=== PATIENT | female | born 1980 | race Caucasian/White ===

== ENCOUNTER 2019-05-05 06:47 | Inpatient (IN) | payer OTHER ==
[2019-05-05 07:34] VITALS: BMI 43.7
[2019-05-05] MEDS ORDERED: Penicillin G Potassium 5 MILL.UNITS VIAL ONE (07:46)
[2019-05-05] MEDS ORDERED: hydrALAZINE 20 MG/ML VIAL SLOW IVP PRN ×2 (07:50→12:48)
[2019-05-05] MEDS ORDERED: HYDROcodone/Acetaminophen 5/325 mg Tablet PO PRN ×2 (07:50)
[2019-05-05] MEDS ORDERED: Ondansetron PF 4 MG/2 ML Vial IVP PRN ×2 (07:50→15:23)
[2019-05-05] MEDS ORDERED: Ibuprofen 800 MG TAB PO PRN (07:50)
[2019-05-05] MEDS ORDERED: NS / Oxytocin 40 units/1000ml 1,000 ML IV PRN (07:50)
[2019-05-05] MEDS ORDERED: Butorphanol Tartrate 1 MG/ML VIAL SLOW IVP PRN (07:50)
[2019-05-05] MEDS ORDERED: Lidocaine 1% (PF) 30 ML VIAL SC PRN (07:50)
[2019-05-05] MEDS ORDERED: Promethazine HCl 25 MG/ML VIAL IM PRN ×2 (07:50→15:23)
[2019-05-05] MEDS ORDERED: Penicillin G Potassium 5 MILL.UNITS in Sodium Chloride 0.9% 100 ML IVPB SCH (08:00)
[2019-05-05] MEDS ORDERED: NS w/ Oxytocin 10 units 500 ML IV SCH ×2 (08:00)
[2019-05-05] MEDS: Lactated Ringer's 1,000 ML IV SCH ×2 (08:16→23:08)
[2019-05-05 08:36] LABS: Hemoglobin 10.4 g/dL (12.0-16.0); Mean Corpuscular Hemoglobin 28.2 pg (27.0-31.0); Mean Corpuscular Volume 82.9 fL (78.0-98.0); Mean Platelet Volume 7.4 fL (7.4-10.4); Platelet Count 316 thou/uL (130-400); RBC Distribution Width 13.1 % (11.5-14.5); Red Blood Cell (RBC) Count 3.68 mill/uL (4.20-5.40); White Blood Cell (WBC) Count 8.5 thou/uL (4.8-10.8)
[2019-05-05 09:12] LABS: Syphilis Antibody Nonreactive (Nonreactive); Syphilis Antibody Index 0.05 S/CO (<1.00 Non-Reactive)
[2019-05-05 09:13] LABS: HBSAg Index 0.16 S/CO (0-0.99); Hep B Surf Ag Non-Reactive S/CO (NonReactive)
[2019-05-05 09:23] LABS: ALT (SGPT) 9 U/L (8-55); AST (SGOT) 12 U/L (5-34); Albumin 3.2 g/dL (3.5-5.0); Alkaline Phosphatase 145 U/L (40-110); Anion Gap 14 mmol/L (10-20); BUN (Urea Nitrogen) 7 mg/dL (7.0-18.7); Bilirubin, Total 0.2 mg/dL (0.2-1.2); Calc. Creatinine Clearance 197 mL/min (70-130); Calcium 9.1 mg/dL (7.8-10.44); Carbon Dioxide 20 mmol/L (22-29); Chloride 107 mmol/L (98-107); Estimated GFR-MDRD Greater than 90; Glucose 93 mg/dL (70-105); Potassium 3.5 mmol/L (3.5-5.1); Protein, Total 6.2 g/dL (6.0-8.3); Sodium 137 mmol/L (136-145)
[2019-05-05] MEDS ORDERED: PROPOFOL 200 MG/20 ML VIAL ONE (10:08)
[2019-05-05] MEDS ORDERED: Succinylcholine Chloride 20 MG/ML 10 ml SYRINGE FS ONE (10:08)
[2019-05-05] MEDS ORDERED: Penicillin G 2.5 MILL.units 2.5 MILL.UNITS in Premix Bag 1 BAG IVPB SCH (12:00)
[2019-05-05] MEDS ORDERED: Ondansetron PF 4 MG/2 ML Vial ONE (12:24)
[2019-05-05] MEDS ORDERED: Ketorolac Tromethamine 30 MG/ML VIAL ONE (12:24)
[2019-05-05] MEDS ORDERED: Oxytocin 10 UNITS/ML VIAL ONE (12:24)
[2019-05-05] MEDS ORDERED: Fentanyl 100 MCG/2 ML VIAL ONE (12:25)
[2019-05-05 12:47] LABS: Actual Bicarbonate (HCO3v) 22 mEq/L (22-28); Base Excess -5.5 mEq/L (-2.0 to +3.0); pH (Cord, venous) 7.27 (7.32-7.43)
[2019-05-05] MEDS ORDERED: Simethicone Chewable 80 MG TAB PO PRN (12:48)
[2019-05-05] MEDS ORDERED: Methylergonovine 0.2 MG TAB PO PRN (12:48)
[2019-05-05] MEDS ORDERED: Misoprostol 200 MCG TAB PR PRN (12:48)
[2019-05-05] MEDS ORDERED: Adacel (T-DAP) 0.5 ML SYRINGE IM ONE (12:48)
[2019-05-05] MEDS ORDERED: Methylergonovine 0.2 MG/ML VIAL IM PRN (12:48)
[2019-05-05] MEDS ORDERED: Lanolin Ointment 7 GM TUBE TOP PRN (12:48)
[2019-05-05] MEDS ORDERED: Bisacodyl 10 MG SUPP PR PRN (12:48)
[2019-05-05 12:49] LABS: Actual Bicarbonate (HCO3a) 21.1 mEq/L (22-28); Base Excess (BEa) -7.5 mEq/L (-2.0 to +3.0)
[2019-05-05] MEDS ORDERED: CEFAZOLIN 1 GM VIAL ONE (12:49)
[2019-05-05] MEDS ORDERED: HYDROmorphone 2 MG/ML VIAL SLOW IVP PRN (13:14)
[2019-05-05] MEDS ORDERED: Meperidine HCl/PF 25 MG/ML VIAL SLOW IVP PRN (13:14)
[2019-05-05] MEDS ORDERED: L&D-Morphine 4 MG/ML VIAL SLOW IVP PRN (13:14)
[2019-05-05] MEDS ORDERED: Meperidine HCl/PF 25 MG/ML VIAL ONE (13:21)
[2019-05-05] MEDS ORDERED: Magnesium Sulfate 20 gm/500 ml 0 GM/0 ML BAG ONE (13:27)
[2019-05-05] MEDS ORDERED: Morphine 4 MG/ML VIAL ONE (14:22)
[2019-05-05] MEDS ORDERED: Morphine 4 MG/ML VIAL SLOW IVP PRN (14:30)
[2019-05-05] MEDS: CEFAZOLIN 1 GM VIAL SLOW IVP SCH ×2 (14:32→23:48)
[2019-05-05] MEDS ORDERED: diphenhydrAMINE 50 MG/ML VIAL IM PRN (15:23)
[2019-05-05] MEDS ORDERED: Naloxone HCl 0.4 mg/ml Vial IV PRN (15:23)
[2019-05-05] MEDS ORDERED: Zolpidem Tartrate 5 MG TAB PO PRN (15:23)
[2019-05-05] MEDS ORDERED: diphenhydrAMINE 50 MG/ML VIAL IVP PRN (15:23)
[2019-05-05] MEDS ORDERED: diphenhydrAMINE 25 MG CAP PO PRN (15:23)
[2019-05-05] MEDS ORDERED: fentaNYL Citrate/PF 2,000 MCG in Sodium Chloride 0.9% 60 ML IV PRN (15:23)
[2019-05-05] MEDS ORDERED: Communication Order-Pharmacy FS SCH (15:30)
--- NOTE | 2019-05-05 21:40 | OP ---
DATE OF PROCEDURE: 05/05/2019 PREOPERATIVE DIAGNOSES: 1. Induction of labor at 37+ weeks for chronic hypertension, on oral medication. 2. Cord prolapse after artificial rupture of membranes. POSTOPERATIVE DIAGNOSIS: Status post primary low-transverse section. APPLICATION INFRASTRUCTURE ENGINEER: Isaac Larson MD COMPLICATIONS: None. ESTIMATED BLOOD LOSS: Pending at the time of dictation. ANESTHESIA: GETA per Dr. Hammond. FINDINGS: 1. Vigorous female , Apgars and weight pending at the time of dictation, to Nursery. 2. Low-transverse hysterotomy without extension. 3. Normal-appearing placenta and cord. 4. Fundus firm after delivery of the placenta and closure of the hysterotomy. 5. Normal-appearing uterus, tubes, and ovaries bilaterally. INDICATIONS: Ms. Marie Tavera was undergoing an induction of labor for chronic hypertension at 37+ weeks, who presented that morning at approximately 1 cm and at approximately noon, she was noted to be 3 cm and 50% effaced with the head well applied to the cervix, and amniotomy was performed with copious amounts of clear fluid noted. Immediately, the patient soaked approximately 2 towels with amniotic fluid. During that time, the heart tracing was normal and reassuring. Approximately 1 minute after rupture, the patient reported another large gush of fluid and soon thereafter the heart tracing was noted to decrease to the 70s to 90s. A scalp electrode was placed and I examined her cervix with no cord prolapse palpable at that time and return of heart rate tracing baseline to 120 beats per minute. I stayed at the bedside and the heart rate tracing dropped again with the next contraction, and did not return to baseline. At that time, she was examined again with cord palpable on the cervical exam. The head was immediately elevated off the cervix. The patient was counseled on the need for stat section and she was taken back to the OR. DESCRIPTION OF PROCEDURE: The patient was taken back to the OR with IV fluids running. When she was in the OR, elevation of the head off the cervix and cord was maintained by a nurse at the bedside. The heart tones Dopplered in the 120s in the OR. A Ochoa catheter was placed. The abdomen was prepped and draped, and general anesthesia was obtained. Once the patient was asleep, a Pfannenstiel skin incision was made with a scalpel. Skin incision was carried down with a scalpel through the subcutaneous tissue to the fascia. Once the fascia was reached, it was incised in the midline and extended superolaterally using curved Armando scissors. Naseem clamps were placed in the superior border of the fascia, which was sharply and bluntly dissected off the rectus abdominis muscles. This was also done at the inferior edge of the fascia, dissected down toward the pubic symphysis. Rectus muscles and peritoneum were bluntly entered, laterally. An William O retractor was placed into the peritoneal cavity for retraction, visualization, and protection of the wound. A low-transverse hysterotomy was made with a scalpel. The was delivered without difficulty through the hysterotomy. A loose nuchal cord was reduced at the time of delivery. The infant had immediate cry at the bedside. The nose and mouth were suctioned. The cord was doubly clamped and cut, and the infant was handed off to special care nurses in attendance. Cord blood was collected. A cord segment for cord gas was collected. The placenta was delivered. The uterus was exteriorized, massaged to firm and cleared of clot and debris. The hysterotomy was inspected and no extensions were noted. Hysterotomy was closed with Monocryl suture in a running locked fashion. A 2nd imbricating layer using Monocryl suture was placed. After the hysterotomy was completely closed, a small area of bleeding was noted in the left corner. This bleeding was controlled with placement of a [id number]-ah-lkaac plain gut suture. Prior to placing the suture, a request for FloSeal was made. After the suture was placed, the hysterotomy was inspected and hemostasis was noted. No areas of bleeding were noted. FloSeal was placed in the corners of the hysterotomy along the incision line. Pressure was applied for approximately 3 minutes as prescribed. When the clean sponge was removed, hysterotomy was inspected again and there was no evidence of bleeding. The uterine fundus was noted to be firm. The William retractor was removed from the abdominal cavity. The peritoneal edge, rectus muscle, and fascia were inspected with no areas of bleeding noted. The fascia was then reapproximated with PDS suture from corner to corner and tied separately in the midline. Subcutaneous tissue was irrigated and dry. Any small areas of bleeding were controlled with Bovie cauterization. The subcutaneous layer was reapproximated with plain gut suture. The skin was closed with a sterile stapler and dressed with a sterile dressing. The patient was then extubated and taken to the recovery room in good condition. After the patient awoke from anesthesia, we reviewed the events of the cord prolapse. The baby was doing well at the bedside and the patient's questions were answered. Job ID: [id number] MTDD
[2019-05-05] MEDS: ceFAZolin 1 GM/D5W 1 GM in Premix Bag 1 BAG IVPB SCH (23:08)
[2019-05-06 05:04] LABS: Hemoglobin 8.9 g/dL (12.0-16.0); Mean Corpuscular HGB CONC 33.1 g/dL (32.0-36.0); Mean Corpuscular Volume 84.5 fL (78.0-98.0); Platelet Count 268 thou/uL (130-400); RBC Distribution Width 13.4 % (11.5-14.5); Red Blood Cell (RBC) Count 3.18 mill/uL (4.20-5.40); White Blood Cell (WBC) Count 10.3 thou/uL (4.8-10.8)
[2019-05-06] MEDS: ceFAZolin 1 GM/D5W 1 GM in Premix Bag 1 BAG IVPB SCH ×2 (05:34→15:47)
[2019-05-06] MEDS: Prenatal Vitamin 1 TAB PO SCH (09:48)
[2019-05-06] MEDS ORDERED: HYDROcodone/Acetaminophen 5/325 mg Tablet PO PRN (10:29)
--- NOTE | 2019-05-06 10:29 | PDOC.PP ---
Post Progress Note Post Day #: 1 Subjective: pain controlled w [employer], tolerating regular diet, has ambulated and voided PO intake tolerated: yes Flatus: yes Ambulation: yes Vital Signs (12 hours) Temp Pulse Resp BP Pulse Ox 05/06/19 08:21 97.8 F 80 20 113/60 98 05/06/19 04:29 98.1 F 80 18 125/60 98 05/06/19 00:43 98.3 F 78 18 126/62 97 Weight Weight 255 lb - Physical Examination General: NAD Respiratory: non-labored breathing Abdominal: appropriately TTP Skin: CS incision dry & intact (dressing clean and dry) Psychiatric: A&Ox3, normal affect Result Diagrams: 05/06/19 04:29 05/05/19 07:58 Additional Labs: Post Labs Blood Type A POSITIVE 05/05/19 07:58 Hep Bs Antigen Non-Reactive S/CO (NonReactive) 05/05/19 07:58 (1) Chronic hypertension affecting Code(s): O10.919 - UNSP PRE-EXISTING HTN COMP , UNSP TRIMESTER Status : Acute (2) Cord prolapse Code(s): O69.0XX0 - LABOR AND DELIVERY COMPLICATED BY PROLAPSE OF CORD, UNSP Status: Acute (3) Delivery by section Code(s): [id number] - Status: Acute (4) 37 weeks gestation of Code(s): Z3A.37 - 37 WEEKS GESTATION OF Status: Acute - Assessment/Plan POD1 doing well sp STAT CS for cord prolapse. No concerns, will hold procardia for now, FU BP closely. Advancing orders.
[2019-05-06] MEDS: HYDROcodone/Acetaminophen 5/325 mg Tablet PO PRN ×3 (11:15→19:48)
[2019-05-06] MEDS ORDERED: CEFAZOLIN 1 GM in Sodium Chloride 0.9% 100 ML IVPB SCH (16:00)
[2019-05-06] MEDS ORDERED: Citalopram 20 MG TAB PO SCH (21:00)
[2019-05-06] MEDS: Ibuprofen 800 MG TAB PO PRN (21:57)
[2019-05-07] MEDS: HYDROcodone/Acetaminophen 5/325 mg Tablet PO PRN ×4 (00:04→12:18)
[2019-05-07] MEDS: Ibuprofen 800 MG TAB PO PRN (06:02)
[2019-05-07 08:15] VITALS: BP 140/79; TEMP 98.3
[2019-05-07] MEDS: Prenatal Vitamin 1 TAB PO SCH (08:46)
--- NOTE | 2019-05-07 10:05 | PDOC.PP ---
Post Progress Note Post Day #: 2 Subjective: doing well, ambulating, minimal pain, request DC PO intake tolerated: yes Flatus: yes Ambulation: yes Vital Signs (12 hours) Temp Pulse Resp BP Pulse Ox 05/07/19 08:14 98.3 F 88 20 140/79 96 05/07/19 06:09 139/71 05/07/19 04:30 98.9 F 83 16 159/83 H 99 05/07/19 00:03 98.0 F 72 18 139/69 98 Weight Weight 255 lb - Physical Examination General: NAD Respiratory: non-labored breathing Abdominal: no distention Skin: CS incision dry & intact Psychiatric: A&Ox3, normal affect Result Diagrams: 05/06/19 04:29 05/05/19 07:58 Additional Labs: Post Labs Blood Type A POSITIVE 05/05/19 07:58 Hep Bs Antigen Non-Reactive S/CO (NonReactive) 05/05/19 07:58 (1) Chronic hypertension affecting Code(s): O10.919 - UNSP PRE-EXISTING HTN COMP , UNSP TRIMESTER Status : Acute (2) Cord prolapse Code(s): O69.0XX0 - LABOR AND DELIVERY COMPLICATED BY PROLAPSE OF CORD, UNSP Status: Acute (3) Delivery by section Code(s): [id number] - Status: Acute (4) 37 weeks gestation of Code(s): Z3A.37 - 37 WEEKS GESTATION OF Status: Acute - Assessment/Plan POD2 A/P: Doing well, discussed restart Procardia 30mg a day and starting iron. Plan for DC today, staple removal sched for next week.
== END 2019-05-07 12:51 | disposition home or self-care (01) | DRG 788 ==
LOC: L&D/OP 06:47 → L&D 07:57 → 3SE 16:21
PROVIDERS: ADMIT Obstetrics & Gynecology; ATTEND Obstetrics & Gynecology
PROC: 10D00Z1 Extraction of Products of Conception, Low, Open Approach (ICD-10-PCS; principal; 2019-05-05)
PROC: 10H07YZ Insertion of Other Device into Products of Conception, Via Natural or Artificial Opening (ICD-10-PCS; 2019-05-05)
PROC: 10907ZC Drainage of Amniotic Fluid, Therapeutic from Products of Conception, Via Natural or Artificial Opening (ICD-10-PCS; 2019-05-05)
PROC: 3E033VJ Introduction of Other Hormone into Peripheral Vein, Percutaneous Approach (ICD-10-PCS; 2019-05-05)
DX: O10.02 Pre-existing essential hypertension complicating childbirth (principal); Z3A.37 37 weeks gestation of pregnancy; Z37.0 Single live birth; O99.343 Other mental disorders complicating pregnancy, third trimester; O99.613 Diseases of the digestive system complicating pregnancy, third trimester; K21.9 Gastro-esophageal reflux disease without esophagitis; O99.824 Streptococcus B carrier state complicating childbirth; F32.9 Major depressive disorder, single episode, unspecified; O69.0XX0 Labor and delivery complicated by prolapse of cord, not applicable or unspecified; O76 Abnormality in fetal heart rate and rhythm complicating labor and delivery; Z79.899 Other long term (current) drug therapy; Z90.49 Acquired absence of other specified parts of digestive tract; Z28.21 Immunization not carried out because of patient refusal
CPT/HCPCS: 36415; 51702; 80053; 82805; 85027; 86780; 86850; 86900; 86901; 87340; J0690; J1200; J1885; J2175; J2270; J2405; J2540; J2590; J2704; J3010; J3475; J3490